=== PATIENT | male | born 1985 | race Caucasian/White ===

== ENCOUNTER 2018-03-21 10:34 | Emergency (ER) | payer MEDICAID ==
[~2018-03-21] VITALS: Ht 172.7 cm; Wt 89.9 kg
[2018-03-21] MEDS ORDERED: ondansetron/PF 4mg/2ml inj IV ONE (10:45)
[2018-03-21] MEDS ORDERED: normal saline 1000ML IV soln IVB ONE (10:45)
[2018-03-21] MEDS ORDERED: dexamethasone sod phosphate 10mg/ml inj IV STA (10:48)
[2018-03-21] MEDS ORDERED: ketorolac trometh. 30mg/ml inj. IV ONE (10:50)
[2018-03-21] MEDS ORDERED: LORazepam 2 mg/ml vial IV ONE (10:50)
[2018-03-21 11:10] LABS: BASOPHILS # (AUTO) 0.1 X10'3 (0-0.2); BASOPHILS % (AUTO) 1.1 % (0-1); EOSINOPHILS % (AUTO) 0 % (0-6); HEMATOCRIT 45.5 % (42.0-52.0); HEMOGLOBIN 15.1 g/dl (14.0-17.9); LYMPHOCYTES # (AUTO) 0.2 X10'3 (1.1-4.8); MEAN CORPUSCULAR HEMOGLOBIN 27.8 PG (27.0-31.0); MEAN CORPUSCULAR HGB CONC 33.2 % (33.0-36.5); MEAN CORPUSCULAR VOLUME 83.9 FL (78-98); MEAN PLATELET VOLUME 8.6 FL (7.4-10.4); MONOCYTES # (AUTO) 0.5 X10'3 (0-0.9); MONOCYTES % (AUTO) 4.5 % (2-12); NEUTROPHILS # (AUTO) 11.2 X10'3 (1.8-7.7); NEUTROPHILS % (AUTO) 92.4 % (42-75); PLATELET COUNT 202 X10'3 (140-440); RED BLOOD COUNT 5.43 X10'6 (4.70-6.10)
[2018-03-21 11:19] LABS: ALANINE AMINOTRANSFERASE 32 U/L (12-78); ALBUMIN 4.2 G/DL (3.4-5.0); ALBUMIN/GLOBULIN RATIO 1.1 (1.1-1.5); ALKALINE PHOSPHATASE 104 IU/L (46-116); ANION GAP 13 (8-16); ASPARTATE AMINO TRANSFERASE 20 U/L (10-37); BILIRUBIN,TOTAL 0.6 MG/DL (0.1-1.0); BLOOD UREA NITROGEN 9 MG/DL (7-18); BUN/CREATININE RATIO 8.7 (5.4-32.0); CALCIUM 8.8 MG/DL (8.5-10.1); CHLORIDE 96 MMOL/L (99-107); CREATININE 1.04 MG/DL (0.60-1.10); GLUCOSE 121 MG/DL (70-104); LIPASE 114 U/L (73-393); POTASSIUM 3.4 MMOL/L (3.5-5.1); SODIUM 134 MMOL/L (135-145); eGFR 83 ML/MIN
[2018-03-21 11:20] LABS: CLARITY,URINE CLEAR (Clear); COLOR,URINE YELLOW (Yellow); GLUCOSE, URINE NEGATIVE (Neg); KETONES,URINE >=80 mg/dl (Neg); LEUKOCYTE ESTERASE ,URINE NEGATIVE (Neg); NITRITES, URINE NEGATIVE (Neg); OCCULT BLOOD,URINE TRACE-INTACT (Neg); PH,URINE 8.5 (4.8-8.0); PROTEIN,URINE TRACE mg/dl (Neg)
[2018-03-21 11:24] LABS: UA COLLECTION TYPE CLN CATCH MIDSTREAM
[2018-03-21 11:33] LABS: MUCUS STRANDS NONE SEEN /LPF (Neg); SQUAMOUS EPITHELIAL CELL,UR NONE SEEN /LPF (FEW); WBC,URINE 0-4 /HPF (0-4)
[2018-03-21 11:34] LABS: BACTERIA,URINE FEW /HPF (Neg)
[2018-03-21] MEDS ORDERED: ONDA4TAB6 PO (11:40)
[2018-03-21 11:58] VITALS: BP 138/65
== END 2018-03-21 12:00 | disposition home or self-care (01) ==
LOC: ER 10:34
DX: A08.39 Other viral enteritis (principal); G43.909 Migraine, unspecified, not intractable, without status migrainosus; Z88.8 Allergy status to other drugs, medicaments and biological substances
CPT/HCPCS: 36415; 80053; 81001; 83690; 85025; 96374; 96375; 99283; J1100; J1885; J2060; J2405; J7030

== ENCOUNTER 2018-12-06 11:22 | Emergency (ER) | payer MEDICAID ==
[~2018-12-06] VITALS: Ht 172.7 cm; Wt 90.9 kg
[~2018-12-06 11:22] MED LIST: ONDA4TAB6 PO
[2018-12-06] MEDS ORDERED: ondansetron/PF 4mg/2ml inj IV ONE (12:50)
[2018-12-06] MEDS ORDERED: normal saline 1000ML IV soln IVB ONE ×2 (12:50)
[2018-12-06 13:19] LABS: BASOPHILS % (AUTO) 0.4 % (0-1); EOSINOPHILS % (AUTO) 0.3 % (0-6); HEMATOCRIT 51.1 % (42.0-52.0); HEMOGLOBIN 17.3 g/dl (14.0-17.9); LYMPHOCYTES # (AUTO) 2.3 X10'3 (1.1-4.8); LYMPHOCYTES % (AUTO) 20.3 % (21-51); MEAN CORPUSCULAR HEMOGLOBIN 28.6 PG (27.0-31.0); MEAN CORPUSCULAR HGB CONC 33.8 g/dL (33.0-36.5); MEAN CORPUSCULAR VOLUME 84.5 FL (78-98); MEAN PLATELET VOLUME 8.2 FL (7.4-10.4); MONOCYTES # (AUTO) 0.6 X10'3 (0-0.9); MONOCYTES % (AUTO) 5.3 % (2-12); NEUTROPHILS # (AUTO) 8.4 X10'3 (1.8-7.7); NEUTROPHILS % (AUTO) 73.7 % (42-75); PLATELET COUNT 263 X10'3 (140-440); RED BLOOD COUNT 6.05 X10'6 (4.70-6.10); WHITE BLOOD COUNT 11.4 X10'3 (4.5-11.0)
[2018-12-06 13:36] LABS: ALANINE AMINOTRANSFERASE 31 U/L (12-78); ALBUMIN 4.4 G/DL (3.4-5.0); ALBUMIN/GLOBULIN RATIO 1.1 (1.1-1.5); ALKALINE PHOSPHATASE 107 IU/L (46-116); ANION GAP 9 (8-16); ASPARTATE AMINO TRANSFERASE 19 U/L (10-37); BLOOD UREA NITROGEN 11 MG/DL (7-18); BUN/CREATININE RATIO 11.3 (5.4-32.0); CALCIUM 9.5 MG/DL (8.5-10.1); CHLORIDE 105 MMOL/L (99-107); CREATININE 0.97 MG/DL (0.60-1.10); GLUCOSE 102 MG/DL (70-104); POTASSIUM 3.9 MMOL/L (3.5-5.1); SODIUM 142 MMOL/L (135-145); TOTAL CARBON DIOXIDE 28.3 MMOL/L (24-32); TOTAL PROTEIN 8.4 G/DL (6.4-8.2); eGFR 89 ML/MIN
--- NOTE | 2018-12-06 13:38 | NUR ---
ASSUMED CARE OF PT FROM [facility], PT IS RESTING QUIETLY ON GURNEY, RESP EVEN AND UNLABORED, FAMILY AT BEDSIDE
[2018-12-06 13:41] LABS: URINE AMPHETAMINE SCREEN NEGATIVE (Neg); URINE BARBITUATE SCREEN NEGATIVE (Neg); URINE BENZODIAZEPINES SCREEN NEGATIVE (Neg); URINE CANNABINOID SCREEN POSITIVE (Neg); URINE COCAINE SCREEN NEGATIVE (Neg); URINE METHADONE SCREEN NEGATIVE (Neg); URINE OPIATE SCREEN NEGATIVE (Neg); URINE PHENCYCLIDINE SCREEN NEGATIVE (Neg)
[2018-12-06 13:44] LABS: ETHANOL < 0.010 GM/DL (0.0-0.010); MAGNESIUM 2.1 MG/DL (1.5-2.4); PHOSPHORUS 3.5 MG/DL (2.3-4.5)
--- NOTE | 2018-12-06 14:09 | NUR ---
PT AMB WITH STEADY GAIT AROUND ER, NO C/O DIZZINESS "BUT I HAVE BEEN DIZZY OFF AND ON FOR THE PAST COUPLE OF DAYS...LIKE I AM DRUNK BUT I HAVEN'T BEEN DRINKING", MRI SCREENING SHEET DONE
--- NOTE | 2018-12-06 14:11 | NUR ---
1ST LITER NS DONE, PT RECEIVING 500ML NS BOLUS
[2018-12-06 14:59] LABS: CLARITY,URINE CLEAR (Clear); COLOR,URINE YELLOW (Yellow); GLUCOSE, URINE NEGATIVE (Neg); KETONES,URINE NEGATIVE (Neg); LEUKOCYTE ESTERASE ,URINE NEGATIVE (Neg); NITRITES, URINE NEGATIVE (Neg); OCCULT BLOOD,URINE NEGATIVE (Neg); PH,URINE >=9.0 (4.8-8.0); PROTEIN,URINE NEGATIVE (Neg); UROBILINOGEN,URINE 0.2 E.U/dL (0.2-1.0)
[2018-12-06 15:00] LABS: UA COLLECTION TYPE CLN CATCH MIDSTREAM
[2018-12-06 15:43] VITALS: BP 139/77
--- NOTE | 2018-12-06 15:44 | NUR ---
PT RESTING QUIETLY ON GURNEY, RESP EVEN AND UNLABORED, "STILL FEEL LIKE I AM IN A FOG BUT I FEEL A LITTLE BETTER"
== END 2018-12-06 16:18 | disposition home or self-care (01) ==
LOC: ER 11:22
DX: R11.2 Nausea with vomiting, unspecified (principal); R41.0 Disorientation, unspecified; G43.909 Migraine, unspecified, not intractable, without status migrainosus; F12.90 Cannabis use, unspecified, uncomplicated; Z87.891 Personal history of nicotine dependence; Z88.8 Allergy status to other drugs, medicaments and biological substances
CPT/HCPCS: 70551; 71045; 80053; 80305; 80320; 81003; 83735; 84100; 84443; 85025; 96361; 96374; 99284; J2405; J7030; J7040

== ENCOUNTER 2019-08-29 08:32 | Emergency (ER) | payer MEDICAID ==
[~2019-08-29] VITALS: Ht 172.7 cm; Wt 90.0 kg
[2019-08-29] MEDS ORDERED: ketorolac trometh. 30mg/ml inj. IV ONE (09:00)
[2019-08-29] MEDS ORDERED: normal saline 1000ML IV soln IVB ONE (09:00)
[2019-08-29] MEDS ORDERED: ondansetron/PF 4mg/2ml inj IV ONE (09:00)
[2019-08-29 09:07] LABS: CLARITY,URINE CLEAR (Clear); COLOR,URINE YELLOW (Yellow); GLUCOSE, URINE NEGATIVE (Neg); KETONES,URINE NEGATIVE (Neg); LEUKOCYTE ESTERASE ,URINE SMALL (Neg); NITRITES, URINE NEGATIVE (Neg); OCCULT BLOOD,URINE SMALL (Neg); PH,URINE 6.5 (4.8-8.0); PROTEIN,URINE NEGATIVE (Neg); UROBILINOGEN,URINE 0.2 E.U/dL (0.2-1.0)
[2019-08-29 09:10] LABS: UA COLLECTION TYPE CLN CATCH MIDSTREAM
[2019-08-29 09:15] LABS: BACTERIA,URINE 1+ /HPF (Neg); MUCUS STRANDS NONE SEEN /LPF (Neg); SQUAMOUS EPITHELIAL CELL,UR FEW /LPF (FEW); WBC CLUMPS,URINE FEW /HPF (NEGATIVE)
[2019-08-29 09:25] VITALS: BP 124/83
[2019-08-29 09:26] LABS: BASOPHILS # (AUTO) 0.2 X10'3 (0-0.2); BASOPHILS % (AUTO) 0.9 % (0-1); EOSINOPHILS % (AUTO) 0.1 % (0-6); HEMATOCRIT 49.1 % (42.0-52.0); HEMOGLOBIN 16.7 g/dl (14.0-17.9); LYMPHOCYTES # (AUTO) 2.2 X10'3 (1.1-4.8); LYMPHOCYTES % (AUTO) 12.7 % (21-51); MEAN CORPUSCULAR HEMOGLOBIN 28.9 PG (27.0-31.0); MEAN CORPUSCULAR VOLUME 85.3 FL (78-98); MEAN PLATELET VOLUME 8.4 FL (7.4-10.4); MONOCYTES # (AUTO) 0.9 X10'3 (0-0.9); MONOCYTES % (AUTO) 5.4 % (2-12); NEUTROPHILS # (AUTO) 13.8 X10'3 (1.8-7.7); NEUTROPHILS % (AUTO) 80.9 % (42-75); PLATELET COUNT 233 X10'3 (140-440); RED BLOOD COUNT 5.76 X10'6 (4.70-6.10); RED CELL DISTRIBUTION WIDTH 13.9 % (11.5-14.5); WHITE BLOOD COUNT 17.1 X10'3 (4.5-11.0)
[2019-08-29 09:32] LABS: ALANINE AMINOTRANSFERASE 34 U/L (12-78); ALBUMIN 4.3 G/DL (3.4-5.0); ALBUMIN/GLOBULIN RATIO 1.1 (1.1-1.5); ALKALINE PHOSPHATASE 111 IU/L (46-116); ANION GAP 5 (8-16); ASPARTATE AMINO TRANSFERASE 16 U/L (10-37); BILIRUBIN,TOTAL 0.8 MG/DL (0.1-1.0); BLOOD UREA NITROGEN 8 MG/DL (7-18); BUN/CREATININE RATIO 7.3 (5.4-32.0); CALCIUM 8.9 MG/DL (8.5-10.1); CHLORIDE 104 MMOL/L (99-107); CREATININE 1.09 MG/DL (0.60-1.10); GLUCOSE 123 MG/DL (70-104); POTASSIUM 3.9 MMOL/L (3.5-5.1); SODIUM 139 MMOL/L (135-145); TOTAL CARBON DIOXIDE 29.6 MMOL/L (24-32); TOTAL PROTEIN 8.3 G/DL (6.4-8.2); eGFR 77 ML/MIN
[2019-08-29] MEDS ORDERED: CefTRIAXone 2gm/D5W 50ml 50 ML IV ONE (09:35)
[2019-08-29] MEDS ORDERED: ONDA4TAB6 PO (10:07)
[2019-08-29] MEDS ORDERED: HYDR-4383 PO (10:07)
[2019-08-29] MEDS ORDERED: CEPH250T PO (10:07)
== END 2019-08-29 11:10 | disposition home or self-care (01) ==
LOC: ER 08:34
DX: N12 Tubulo-interstitial nephritis, not specified as acute or chronic (principal); F12.90 Cannabis use, unspecified, uncomplicated; Z88.8 Allergy status to other drugs, medicaments and biological substances; Z79.2 Long term (current) use of antibiotics; Z79.899 Other long term (current) drug therapy
CPT/HCPCS: 36415; 74176; 80053; 81001; 85025; 87088; 96365; 96375; 99284; J0696; J1885; J2405; J7030

== ENCOUNTER 2019-10-20 19:09 | Emergency (ER) | payer MEDICAID ==
[~2019-10-20] VITALS: Ht 172.7 cm; Wt 76.0 kg
[~2019-10-20 19:09] MED LIST changes: +HYDR-4383 PO
[2019-10-20 20:29] VITALS: BP 133/99
== END 2019-10-20 20:30 | disposition home or self-care (01) ==
LOC: ER 19:09
DX: S90.01XA Contusion of right ankle, initial encounter (principal); M54.2 Cervicalgia; M25.511 Pain in right shoulder; M25.512 Pain in left shoulder; M54.9 Dorsalgia, unspecified; F12.90 Cannabis use, unspecified, uncomplicated; Z88.8 Allergy status to other drugs, medicaments and biological substances; Z79.82 Long term (current) use of aspirin; W20.8XXA Other cause of strike by thrown, projected or falling object, initial encounter; Y93.89 Activity, other specified; Y92.89 Other specified places as the place of occurrence of the external cause; Y99.8 Other external cause status
CPT/HCPCS: 73610; 99283

== ENCOUNTER 2023-03-06 06:40 | Emergency (ER) | payer MEDICAID ==
[~2023-03-06] VITALS: Ht 175.3 cm; Wt 88.9 kg
[2023-03-06 06:55] VITALS: TEMP 97.7
[2023-03-06] MEDS ORDERED: acetaminophen 325mg tablet PO ONE (07:50)
[2023-03-06] MEDS ORDERED: HYDROmorphone 1 mg/ml syringe IM ONE (07:50)
[2023-03-06] MEDS ORDERED: ondansetron 4mg rapidly disintigrating tab PO ONE (07:50)
[2023-03-06] MEDS ORDERED: cyclobenzaprine 10mg tablet PO ONE (07:50)
[2023-03-06] MEDS ORDERED: ketorolac trometh inj. 60 MG/2 ML VIAL IM ONE (07:50)
[2023-03-06] MEDS ORDERED: normal saline 1000ML IV soln IVB ONE (09:45)
[2023-03-06 10:05] LABS: BASOPHILS % (AUTO) 0.3 % (0-1); EOSINOPHILS % (AUTO) 0.2 % (0-6); HEMATOCRIT 46.6 % (42.0-52.0); HEMOGLOBIN 15.7 g/dl (14.0-17.9); LYMPHOCYTES # (AUTO) 2.3 X10'3 (1.1-4.8); LYMPHOCYTES % (AUTO) 15.7 % (21-51); MEAN CORPUSCULAR HEMOGLOBIN 28.2 PG (27.0-31.0); MEAN CORPUSCULAR HGB CONC 33.7 g/dL (33.0-36.5); MEAN CORPUSCULAR VOLUME 83.7 FL (78-98); MEAN PLATELET VOLUME 8.2 FL (7.4-10.4); MONOCYTES # (AUTO) 1.1 X10'3 (0-0.9); MONOCYTES % (AUTO) 7.3 % (2-12); NEUTROPHILS # (AUTO) 11.3 X10'3 (1.8-7.7); NEUTROPHILS % (AUTO) 76.5 % (42-75); PLATELET COUNT 224 X10'3 (140-440); RED BLOOD COUNT 5.57 X10'6 (4.70-6.10); RED CELL DISTRIBUTION WIDTH 14.4 % (11.5-14.5); WHITE BLOOD COUNT 14.7 X10'3 (4.5-11.0)
[2023-03-06 10:17] LABS: ALANINE AMINOTRANSFERASE 32 U/L (12-78); ALBUMIN 4.3 G/DL (3.4-5.0); ALBUMIN/GLOBULIN RATIO 1.1 (1.1-1.5); ALKALINE PHOSPHATASE 113 IU/L (46-116); ANION GAP 9 (8-16); ASPARTATE AMINO TRANSFERASE 21 U/L (10-37); BILIRUBIN,TOTAL 0.8 MG/DL (0.1-1.0); BLOOD UREA NITROGEN 10 MG/DL (7-18); CALCIUM 9.3 MG/DL (8.5-10.1); CHLORIDE 102 MMOL/L (99-107); CREATININE 0.91 MG/DL (0.60-1.10); GLUCOSE 127 MG/DL (70-104); POTASSIUM 3.7 MMOL/L (3.5-5.1); SODIUM 139 MMOL/L (135-145); TOTAL PROTEIN 8.1 G/DL (6.4-8.2); eCRCL 111 ML/MIN; eGFR > 90 ML/MIN
[2023-03-06] MEDS ORDERED: iohexol 300mg/ml 100ml inj. ONE (10:32)
[2023-03-06 11:08] VITALS: BP 127/86; PULSE 84; O2SAT 99
[2023-03-06] MEDS ORDERED: ACET-1025 PO (11:55)
[2023-03-06] MEDS ORDERED: DICL20GE CERV (11:55)
[2023-03-06] MEDS ORDERED: NAPR-56 PO (11:55)
[2023-03-06] MEDS ORDERED: CYCL-394 PO (11:55)
[2023-03-06] MEDS ORDERED: HYDROcodone/acetaminophen 10/325mg tab PO ONE (12:00)
[2023-03-06] MEDS ORDERED: ketorolac trometh. 30mg/ml inj. IV ONE (12:00)
[2023-03-06 12:16] VITALS: RESP 19
[2023-03-07] MEDS ORDERED: PRED20TA PO (21:31)
== END 2023-03-06 12:26 | disposition home or self-care (01) ==
LOC: ER 06:41
DX: M54.2 Cervicalgia (principal)
CPT/HCPCS: 36415; 70491; 72125; 80053; 85025; 96361; 96372; 96374; 99285; J1170; J1885; J3490; J7030; L0172; Q9967; 96360

== ENCOUNTER 2023-03-07 19:02 | Emergency (ER) | payer MEDICAID ==
[~2023-03-07] VITALS: Ht 172.7 cm; Wt 86.8 kg
[~2023-03-07 19:02] MED LIST changes: +ACET-1025 PO; +CYCL-394 PO; +DICL20GE CERV; +NAPR-56 PO
[2023-03-07] MEDS ORDERED: famotidine/PF 10 mg/ml inj IV ONE (19:30)
[2023-03-07] MEDS ORDERED: diphenhydrAMINE 50 mg/ml inj IV ONE (19:30)
[2023-03-07] MEDS ORDERED: ondansetron/PF 4mg/2ml inj IV ONE (20:20)
[2023-03-07] MEDS ORDERED: ketorolac tromethamine 15mg/ml inj. IV ONE (21:25)
[2023-03-07] MEDS ORDERED: PRED20TA PO (21:31)
[2023-03-07] MEDS ORDERED: oxyCODONE/APAP 5-325mg tablet PO ONE (21:45)
[2023-03-07 22:19] VITALS: BP 139/99; PULSE 89; RESP 18; TEMP 98; O2SAT 98
== END 2023-03-07 22:22 | disposition home or self-care (01) ==
LOC: ER 19:03
DX: T78.49XA Other allergy, initial encounter (principal); M43.6 Torticollis; X58.XXXA Exposure to other specified factors, initial encounter
CPT/HCPCS: 96374; 96375; 99285; J1200; J1885; J2405; J3490

== ENCOUNTER 2023-05-17 19:38 | Emergency (ER) | payer MEDICAID ==
[~2023-05-17] VITALS: Ht 165.1 cm; Wt 89.8 kg
[~2023-05-17 19:38] MED LIST changes: -ACET-1025 PO; -CYCL-394 PO; -NAPR-56 PO
[2023-05-17] MEDS: proparacaine 0.5% ophthalmic drops 15ml EACHEYE STA (20:18)
[2023-05-17] MEDS: gentamicin 0.3% ophthalmic drops 5ML LEFTEYE ONE (21:05)
[2023-05-17] MEDS: oxyCODONE/APAP 10/325mg tablet PO ONE (21:09)
[2023-05-17 21:20] VITALS: BP 144/98; PULSE 82; RESP 16; TEMP 98.3; O2SAT 96
== END 2023-05-17 21:22 | disposition home or self-care (01) ==
LOC: ER 19:40
DX: S05.02XA Injury of conjunctiva and corneal abrasion without foreign body, left eye, initial encounter (principal); G43.909 Migraine, unspecified, not intractable, without status migrainosus; F12.10 Cannabis abuse, uncomplicated; Z87.442 Personal history of urinary calculi; Z88.8 Allergy status to other drugs, medicaments and biological substances; Z79.899 Other long term (current) drug therapy; Z88.5 Allergy status to narcotic agent; X58.XXXA Exposure to other specified factors, initial encounter; Y93.89 Activity, other specified; Y92.89 Other specified places as the place of occurrence of the external cause; Y99.8 Other external cause status
CPT/HCPCS: 99284